=== PATIENT | male | born 1995 | race Caucasian/White ===

== ENCOUNTER 2016-09-01 14:09 | Emergency (ER) | payer MEDICAID ==
[~2016-09-01] VITALS: Ht 188 cm; Wt 61.2 kg
[2016-09-01 15:30] VITALS: BP 121/79
== END 2016-09-01 16:30 | disposition home or self-care (01) ==
LOC: ED 14:09
DX: S05.01XA Injury of conjunctiva and corneal abrasion without foreign body, right eye, initial encounter (principal); J45.909 Unspecified asthma, uncomplicated; F12.90 Cannabis use, unspecified, uncomplicated; F17.210 Nicotine dependence, cigarettes, uncomplicated; Z71.6 Tobacco abuse counseling; W17.89XA Other fall from one level to another, initial encounter; Y93.89 Activity, other specified; Y99.8 Other external cause status; Y92.89 Other specified places as the place of occurrence of the external cause
CPT/HCPCS: 90715; 99406

== ENCOUNTER 2016-12-23 21:58 | Emergency (ER) | payer MEDICAID ==
[2016-12-23 23:40] LABS: CALCIUM 9.4 mg/dL (8.5-10.1); CARBON DIOXIDE 29.9 mmol/L (21-32); CHLORIDE SERUM 102 mmol/L (98-107); CREATININE SERUM 0.9 mg/dL (0.7-1.3); GFR1 > 60 mL/min; GLUCOSE SERUM 83 mg/dL (74-106); POTASSIUM SERUM 4.1 mmol/L (3.5-5.1); SODIUM SERUM 135 mmol/L (136-145)
[2016-12-23 23:45] LABS: ALBUMIN 4.2 g/dL (3.4-5.0); ALKALINE PHOSPHATASE 83 U/L (46-116); ALT/SGPT 25 U/L (16-63); AST/SGOT 21 U/L (15-37); BILIRUBIN TOTAL 1.1 mg/dL (0.20-1.00)
[2016-12-24 00:25] LABS: BASOPHIL % 0.5 % (0-2); PLATELET COUNT 196 x10^3mcL (130-400)
[2016-12-24 00:57] VITALS: BP 117/78
== END 2016-12-24 00:45 | disposition home or self-care (01) ==
LOC: ED 21:58
PROVIDERS: Emergency Medicine
DX: A08.4 Viral intestinal infection, unspecified (principal); J45.909 Unspecified asthma, uncomplicated
CPT/HCPCS: 36415; 82962

== ENCOUNTER 2017-03-05 14:24 | Emergency (ER) | payer MEDICAID ==
[~2017-03-05] VITALS: Ht 188 cm; Wt 68.0 kg
[2017-03-05 14:29] VITALS: BP 124/94
== END 2017-03-05 16:53 | disposition home or self-care (01) ==
LOC: ED 14:24
DX: G51.0 Bell's palsy (principal); J45.909 Unspecified asthma, uncomplicated

== ENCOUNTER 2017-09-08 12:31 | Emergency (ER) | payer MEDICAID ==
[~2017-09-08] VITALS: Ht 185.4 cm; Wt 58.5 kg
[2017-09-08 13:09] VITALS: BP 114/57; Ht 185.4 cm; Wt 58.5 kg
== END 2017-09-08 14:05 | disposition home or self-care (01) ==
LOC: ED 12:31
DX: S91.331A Puncture wound without foreign body, right foot, initial encounter (principal); W22.8XXA Striking against or struck by other objects, initial encounter; Y93.89 Activity, other specified; Y92.89 Other specified places as the place of occurrence of the external cause; Y99.8 Other external cause status; J45.909 Unspecified asthma, uncomplicated
CPT/HCPCS: 90715